=== PATIENT | female | born 1940 | race Caucasian/White ===

== ENCOUNTER → 2018-11-27 | Outpatient (CLI) | payer OTHER ==
[~2018-11-27] MED LIST: LIDOCAINE/PRILOCAINE CREAM 5GM TUBE TP ONE
[2018-11-27 16:04] VITALS: BP 122/74
== END | disposition home or self-care (01) ==
LOC: WHH 13:30
PROVIDERS: ATTEND Family Medicine
DX: L89.894 Pressure ulcer of other site, stage 4 (principal); H90.5 Unspecified sensorineural hearing loss; M47.896 Other spondylosis, lumbar region; M47.894 Other spondylosis, thoracic region; Z86.718 Personal history of other venous thrombosis and embolism; Z95.0 Presence of cardiac pacemaker; Z85.43 Personal history of malignant neoplasm of ovary
CPT/HCPCS: A4450; A6213; A6248; G0463; J3490

== ENCOUNTER → 2018-12-04 | Outpatient (CLI) | payer OTHER ==
[2018-12-04 16:22] VITALS: BP 120/63
== END | disposition home or self-care (01) ==
LOC: WHH 14:15
PROVIDERS: ATTEND Family Medicine
DX: L89.893 Pressure ulcer of other site, stage 3 (principal); H90.5 Unspecified sensorineural hearing loss; M47.896 Other spondylosis, lumbar region; M47.894 Other spondylosis, thoracic region; Z86.718 Personal history of other venous thrombosis and embolism; Z95.0 Presence of cardiac pacemaker; Z85.43 Personal history of malignant neoplasm of ovary
CPT/HCPCS: A6212; G0463

== ENCOUNTER 2018-12-18 14:45 | Outpatient (CLI) | payer OTHER ==
[2018-12-18 16:01] VITALS: BP 124/67
== END 2018-12-18 17:08 | disposition home or self-care (01) ==
LOC: WHH 14:45
PROVIDERS: ATTEND Family Medicine
DX: L89.893 Pressure ulcer of other site, stage 3 (principal); C56.9 Malignant neoplasm of unspecified ovary; H90.5 Unspecified sensorineural hearing loss; M47.896 Other spondylosis, lumbar region; M47.894 Other spondylosis, thoracic region; Z86.718 Personal history of other venous thrombosis and embolism; Z95.0 Presence of cardiac pacemaker
CPT/HCPCS: G0463